=== PATIENT | female | born 1985 | race African-American/Black ===

== ENCOUNTER 2018-07-28 13:01 | Emergency (ER) | payer MEDICAID, OTHER ==
[~2018-07-28] VITALS: Ht 157.5 cm; Wt 40.4 kg
--- NOTE | 2018-07-28 13:25 | ED GI ---
General Stated Complaint: STOMACH WOUND Source of Information: Patient Exam Limitations: No Limitations History of Present Illness Date Seen by Provider: Jul 28, 2018 Time Seen by Provider: 13:15 Initial Comments Patient presents to ER by private conveyance with chief complaint of increased drainage from her fistula. Year ago she had to have a colectomy and ileostomy placed secondary to Crohn's. She still on therapy under the care of a GI specialist at . One month ago she developed a small fistula to the left lateral portion of her ileostomy with a small amount of stool. She went to see Dr. ybarra who referred her to go back to her GI specialist who set her up with an appointment with a surgeon at in the middle of August. She says the last couple days the drainage/stool has become more prevalent and she is using an ABD pad a couple times a day to keep it clean. She does have some modest pain but it's at baseline about a 45 out of 10 and she usually takes care of with just Tylenol. She does not want anything for the pain right now. No nausea vomiting or decreased stool output in the ileostomy bag. She has some irritated skin she says but has not began to break down she's not having any fevers chills , increased abdominal pain. She's not noted any blood from the fistula or ileostomy. She's not sure what to do with the more prominent drainage from the fistula. She is on treatment for her Crohn's but she's not sure the name of the drugs are. She used to be on Remicade but it had some adverse effects. Patient states that her heart rate always runs high around 110. Allergies and Home Medications Allergies Coded Allergies: ciprofloxacin (Verified Allergy, Unknown, 07/28/18) Patient Home Medication List Home Medication List Reviewed: Yes Review of Systems Review of Systems Constitutional: No chills, No fever, No malaise EENTM: No Blurred Vision, No Double Vision Respiratory: Denies Cough, Denies Shortness of Air Cardiovascular: Denies Chest Pain, Denies Lightheadedness Gastrointestinal: See HPI, Abdominal Pain (chronic); Denies Blood Streaked Stools, Denies Constipated, Denies Diarrhea Genitourinary: Denies Burning, Denies Discharge Musculoskeletal: No back pain, No joint pain Skin: No pruritus, No rash Psychiatric/Neurological: Denies Headache, Denies Numbness Past Wxkbvxr-Ziveum-Pwsksh Hx Patient Social History Alcohol Use: Denies Use Recreational Drug Use: No Smoking Status: Never a Smoker Recent Foreign Travel: No Contact w/Someone Who Travel: No Physical Exam Vital Signs Vital Signs - First Documented 07/28/18 13:05 Temp 97.4 Pulse 126 Resp 18 B/P (MAP) 117/78 (91) Pulse Ox 100 Capillary Refill : Height/Weight/BMI Height: '" Weight: lbs. oz. kg; BMI Method: General Appearance: WD/WN, no apparent distress, other (chronically ill) HEENT: PERRL/EOMI, pharynx normal Respiratory: lungs clear, normal breath sounds, no respiratory distress, no accessory muscle use Cardiovascular: normal peripheral pulses, regular rate, rhythm Gastrointestinal: normal bowel sounds, soft, tenderness (mild tenderness around the site of the fistula.) Neurologic/Psychiatric: alert, oriented x 3 Skin: other (there is a 1-2 cm open fistula with intact skin edges just lateral to the site of the ileostomy with a piece of gauze taped over. The skin is not macerated erythematous. There is a small less than 5 cc of stool content similar to within the ileostomy present.) Progress/Results/Core Measures Results/Orders Lab Results Laboratory Tests Test 07/28/18 13:05 Range/Units White Blood Count 5.5 4.3-11.0 10^3/uL Red Blood Count 3.38 L 4.35-5.85 10^6/uL Hemoglobin 10.0 L 11.5-16.0 G/DL Hematocrit 32 L 35-52 % Mean Corpuscular Volume 95 80-99 FL Mean Corpuscular Hemoglobin 30 25-34 PG Mean Corpuscular Hemoglobin Concent 31 L 32-36 G/DL Red Cell Distribution Width 16.3 H 10.0-14.5 % Platelet Count 325 130-400 10^3/uL Mean Platelet Volume 8.0 7.4-10.4 FL Neutrophils (%) (Auto) 71 42-75 % Lymphocytes (%) (Auto) 17 12-44 % Monocytes (%) (Auto) 11 0-12 % Eosinophils (%) (Auto) 1 0-10 % Basophils (%) (Auto) 0 0-10 % Neutrophils # (Auto) 3.9 1.8-7.8 X 10^3 Lymphocytes # (Auto) 0.9 L 1.0-4.0 X 10^3 Monocytes # (Auto) 0.6 0.0-1.0 X 10^3 Eosinophils # (Auto) 0.1 0.0-0.3 10^3/uL Basophils # (Auto) 0.0 0.0-0.1 10^3/uL Sodium Level 140 135-145 MMOL/L Potassium Level 4.2 3.6-5.0 MMOL/L Chloride Level 106 98-107 MMOL/L Carbon Dioxide Level 22 21-32 MMOL/L Anion Gap 12 5-14 MMOL/L Blood Urea Nitrogen 13 7-18 MG/DL Creatinine 0.97 0.60-1.30 MG/DL Estimat Glomerular Filtration Rate > 60 BUN/Creatinine Ratio 13 Glucose Level 85 70-105 MG/DL Calcium Level 9.7 8.5-10.1 MG/DL Corrected Calcium 10.1 8.5-10.1 MG/DL Magnesium Level 1.5 L 1.8-2.4 MG/DL Total Bilirubin 0.3 0.1-1.0 MG/DL Aspartate Amino Transf (AST/SGOT) 12 5-34 U/L Alanine Aminotransferase (ALT/SGPT) 7 0-55 U/L Alkaline Phosphatase 68 40-136 U/L Total Protein 7.2 6.4-8.2 GM/DL Albumin 3.5 3.2-4.5 GM/DL My Orders Orders - ESTEFANIA WHELAN Chayo Cbc With Automated Diff (07/28/18 13:18) Comprehensive Metabolic Panel (07/28/18 13:18) Magnesium (07/28/18 13:18) Vital Signs/I&O 07/28/18 13:05 Temp 97.4 Pulse 126 Resp 18 B/P (MAP) 117/78 (91) Pulse Ox 100 Progress Progress Note : Time: 13:26 Progress Note Plan to check some basic labs. Her abdominal exam is unremarkable. The fistula across external os does not look like it is breaking down. Since it seems to be increasing how much is draining we could suggest putting another ileostomy bag over the site rather than just using the gauze. If the basic labs don't demonstrate evidence of infection or inflammation and will ask her general surgeon for suggestions and see if we can set her up at to see the surgeon a little sooner. If the labs are concerning then we will obtain CT imaging to see if there is tracks going anywhere else and consider antibiotic coverage and cultures. This would accelerate her workup inpatient. Consults : Consulting Physician: SIMONE SANCHEZ MD Consults Notes Discussed the case with Dr. Sanchez and he agrees with plan. He suggested we put a another colostomy bag over the ileostomy for skin protection. He also recommends Cipro and Flagyl and follow up with a specialist surgeon which is already set up. He would suggest about 2 weeks of antibiotics. Low residual diet. Departure Impression Primary Impression: Enterocutaneous fistula Additional Impressions: Crohn's colitis Qualified Codes: K50.113 - Crohn's disease of large intestine with fistula Ileostomy present Hypomagnesemia Disposition: HOME, SELF-CARE Condition: Stable Departure-Patient Inst. Decision time for Depature: 13:56 Referrals: ASTON YBARRA MD (PCP) Primary Care Physician Patient Instructions: Enterocutaneous Fistula (DC), Low Fiber Diet Add. Discharge Instructions: Keep the skin clean around your fistula the same as you would for your ileostomy. Empty the fistula bag and change it on the same schedule that you change your ileostomy or as needed. Return to the ER if you begin to have significant wound breakdown, abdominal pain that does not respond to Tylenol or ibuprofen, nausea vomiting or fever. Eat a low fiber diet. See the reference handout. lab support service tech the antibiotics and start taking Augmentin and Flagyl twice a day with food. For the next 4 days take a magnesium oxide tablet twice a day. Drink plenty of fluids. Keep your follow-up appointment with the surgeon in August. Scripts Metronidazole (Flagyl) 500 Mg Tablet 500 MG PO BID for 14 Days, #28 TAB 0 Refills Prov: ESTEFANIA WHELAN 07/28/18 Amoxicillin/Potassium Clav (Augmentin 875-125 Tablet) 1 Each Tablet 1 EACH PO BID for 14 Days, #28 TAB 0 Refills Prov: ESTEFANIA WHELAN 07/28/18 ESTEFANIA WHELAN Jul 28, 2018 13:24
[2018-07-28] MEDS ORDERED: ERGO50006 (13:29)
[2018-07-28] MEDS ORDERED: ZINC220C9 (13:29)
[2018-07-28] MEDS ORDERED: AZAT50TA (13:29)
[2018-07-28] MEDS ORDERED: MIDO5TAB (13:29)
[2018-07-28] MEDS ORDERED: DIPH1TAB25 (13:29)
[2018-07-28] MEDS ORDERED: ATOR10TA66 (13:29)
[2018-07-28 13:35] LABS: BASOPHILS % (AUTO) 0 % (0-10); EOSINOPHILS # (AUTO) 0.1 10^3/uL (0.0-0.3); EOSINOPHILS % (AUTO) 1 % (0-10); HEMATOCRIT 32 % (35-52); LYMPHOCYTES # (AUTO) 0.9 X 10^3 (1.0-4.0); LYMPHOCYTES % (AUTO) 17 % (12-44); MEAN CORPUSCULAR HEMOGLOBIN 30 PG (25-34); MEAN CORPUSCULAR HGB CONC 31 G/DL (32-36); MEAN CORPUSCULAR VOLUME 95 FL (80-99); MONOCYTES # (AUTO) 0.6 X 10^3 (0.0-1.0); MONOCYTES % (AUTO) 11 % (0-12); NEUTROPHILS # (AUTO) 3.9 X 10^3 (1.8-7.8); NEUTROPHILS % (AUTO) 71 % (42-75); PLATELET COUNT 325 10^3/uL (130-400); RED CELL DISTRIBUTION WIDTH 16.3 % (10.0-14.5); WHITE BLOOD COUNT 5.5 10^3/uL (4.3-11.0)
[2018-07-28 13:51] LABS: ALANINE AMINOTRANSFERASE 7 U/L (0-55); ALBUMIN 3.5 GM/DL (3.2-4.5); ALKALINE PHOSPHATASE 68 U/L (40-136); BILIRUBIN,TOTAL 0.3 MG/DL (0.1-1.0); BUN/CREATININE RATIO 13; CALCIUM 9.7 MG/DL (8.5-10.1); CARBON DIOXIDE 22 MMOL/L (21-32); CHLORIDE 106 MMOL/L (98-107); CREATININE SERUM 0.97 MG/DL (0.60-1.30); GFR ESTIMATED > 60; GLUCOSE 85 MG/DL (70-105); MAGNESIUM 1.5 MG/DL (1.8-2.4); POTASSIUM 4.2 MMOL/L (3.6-5.0); SODIUM 140 MMOL/L (135-145); TOTAL PROTEIN 7.2 GM/DL (6.4-8.2)
[2018-07-28 14:03] VITALS: BP 117/78
[2018-07-28] MEDS ORDERED: AMOX-358 PO (14:03)
[2018-07-28] MEDS ORDERED: METR500T PO (14:03)
--- NOTE | 2018-07-28 14:03 | NUR ---
2ND SMALLER COLOSTOMY BAG IN PLACE ORDERED
== END 2018-07-28 14:06 | disposition home or self-care (01) ==
LOC: ER 13:03
DX: K63.2 Fistula of intestine (principal); K50.113 Crohn's disease of large intestine with fistula; E83.42 Hypomagnesemia; Z88.1 Allergy status to other antibiotic agents; Z93.2 Ileostomy status; Z90.49 Acquired absence of other specified parts of digestive tract
CPT/HCPCS: 36415; 80053; 83735; 85025; 99282

== ENCOUNTER 2019-01-26 14:29 | Emergency (ER) | payer MEDICAID ==
[~2019-01-26] VITALS: Ht 157 cm; Wt 52.0 kg
[~2019-01-26 14:29] MED LIST: AMOX-358 PO; ATOR10TA66; AZAT50TA; DIPH1TAB25; ERGO50006; METR500T PO; MIDO5TAB; ZINC220C9
--- NOTE | 2019-01-26 14:50 | NUR ---
PT UNSURE OF MED LIST
[2019-01-26] MEDS ORDERED: NS IV 1000 ML 1,000 ML IV ONE (15:17)
--- NOTE | 2019-01-26 15:31 | ED Abdominal Pain ---
General Chief Complaint: Skin/Wound Problems Stated Complaint: HERNIA Nursing Triage Note: PT CO OF ILEOSTOMY AREA W HERNIA W FISTULA, SORE STATES BAG NOT STICKING WELL. PT HAS TWO STOMA SITES W STOOL COMING FROM THEM. PT STATES WONDERING IF IS INFECTED Sepsis Screen: No Definite Risk Source of Information: Patient Exam Limitations: No Limitations (SANTANA STEPHEN STUDENT) History of Present Illness Date Seen by Provider: Jan 26, 2019 Time Seen by Provider: 15:10 Initial Comments The patient is a wd/wn thin 34 y/o female who is here with a chief complaint of abdominal pain. She states that she typically experiences pain associated with Chron's disease and ileiostomy but the pain has been increasing near the ostomy and she is concerned about infection. She reports that the area also appears to be swollen and mildly erythematous. She states that it is very sore to touch around the iliostomy and fistula. She denies any recent fevers or illness. She also denies nausea, vomiting, or shortness of breath. Her abdomen is otherwise nontender. Timing/Duration: Getting Worse Severity/Quality: Moderate Location: LLQ Radiation: No Radiation Activities at Onset: None Modifying Factors: Worsens With Movement, Worsens With Palpation (SANTANA STEPHEN STUDENT) Initial Comments Here with report of drainage around her ileostomy site and the area of fistula drainage. She is tender between the sites. Notes that stool is leaking around her bag and down and she is worried that there is something worse going on. Denies fever or chills. Denies nausea, vomiting or weakness. Does have loose/watery stool which is typical. She has stool collection in both bags. Timing/Duration: Getting Worse Severity/Quality: Moderate Location: LLQ Radiation: No Radiation Activities at Onset: None Associated Symptoms: No Back Pain, No Chest Pain, No Fever/Chills, No Nausea/Vomiting, No Weakness; Other (some skin changes around the ostomy and fistula) (ALON MOY MD) Allergies and Home Medications Allergies Coded Allergies: ciprofloxacin (Verified Allergy, Unknown, 07/28/18) Home Medications Amoxicillin/Potassium Clav 1 Each Tablet, 1 EACH PO BID Prescribed by: ESTEFANIA WHELAN on 07/28/18 1403 Metronidazole 500 Mg Tablet, 500 MG PO BID Prescribed by: ESTEFANIA WHELAN on 07/28/18 1403 Patient Home Medication List Home Medication List Reviewed: Yes (ALON MOY MD) Review of Systems Review of Systems Constitutional: No chills, No fever Respiratory: Denies Cough, Denies Shortness of Air Cardiovascular: Denies Chest Pain, Denies Palpitations Gastrointestinal: Abdominal Pain; Denies Nausea, Denies Vomiting (SANTANA STEPHEN STUDENT) Genitourinary: No Symptoms Reported Musculoskeletal: no symptoms reported Skin: see HPI, change in color, lesions (ALON MOY MD) All Other Systems Reviewed Negative Unless Noted: Yes (ALON MOY MD) Past Pkmnqmf-Hvabzz-Dxwexp Hx Past Med/Social Hx: Reviewed Nursing Past Med/Soc Hx (ALON MOY MD) Patient Social History Alcohol Use: Denies Use Recreational Drug Use: No Smoking Status: Never a Smoker Recent Foreign Travel: No Contact w/Someone Who Travel: No Recent Infectious Disease Expo: No Recent Hopitalizations: No Physical Abuse: No Sexual Abuse: No (SANTANA STEPHEN) Past Medical History Surgeries: Yes Abdominal Respiratory: No Cardiac: No Neurological: No Genitourinary: No Gastrointestinal: Yes (ILEOSTOMY) Crohns Disease Musculoskeletal: No Endocrine: No HEENT: No Cancer: No Psychosocial: No Integumentary: No (SANTANA STEPHEN STUDENT) Family Medical History Reviewed Nursing Family Hx (ALON MOY MD) No Pertinent Family Hx (ALON MOY MD) Physical Exam Vital Signs Vital Signs - First Documented 01/26/19 14:40 Temp 36.9 Pulse 121 Resp 18 B/P (MAP) 100/65 (77) Pulse Ox 98 (LAON MOY MD) Vital Signs Capillary Refill : Less Than 3 Seconds (SANTANA STEPHEN STUDENT) Height/Weight/BMI Height: 5'2.00" Weight: 89lbs. oz. 40.688657qc; 21.00 BMI Method:Stated General Appearance: WD/WN, no apparent distress HEENT: PERRL/EOMI, pharynx normal Respiratory: chest non-tender, lungs clear, normal breath sounds Cardiovascular: regular rate, rhythm, no murmur Gastrointestinal: normal bowel sounds, soft, tenderness Extremities: normal inspection, no pedal edema Back: normal inspection, no CVA tenderness, no vertebral tenderness Skin: normal color, warm/dry (SANTANA STEPHEN MED STUDENT) General Appearance: WD/WN, no apparent distress HEENT: PERRL/EOMI, pharynx normal Neck: full range of motion, supple Respiratory: lungs clear, normal breath sounds Cardiovascular: regular rate, rhythm, no murmur Gastrointestinal: soft, tenderness (left lower quadrant below ostomy and fistula site as well as in between.) Extremities: normal range of motion, non-tender, normal inspection Back: normal inspection, no CVA tenderness, no vertebral tenderness Neurologic/Psychiatric: alert, oriented x 3 Skin: warm/dry, other (some erythema near ostomy site especially below and between ostomy and fistula site.) (ALON MOY MD) Progress/Results/Core Measures Results/Orders Lab Results Laboratory Tests Test 01/26/19 15:35 01/26/19 17:38 Range/Units White Blood Count 5.6 4.3-11.0 10^3/uL Red Blood Count 3.86 L 4.35-5.85 10^6/uL Hemoglobin 11.5 11.5-16.0 G/DL Hematocrit 36 35-52 % Mean Corpuscular Volume 92 80-99 FL Mean Corpuscular Hemoglobin 30 25-34 PG Mean Corpuscular Hemoglobin Concent 32 32-36 G/DL Red Cell Distribution Width 15.5 H 10.0-14.5 % Platelet Count 306 130-400 10^3/uL Mean Platelet Volume 8.2 7.4-10.4 FL Neutrophils (%) (Auto) 67 42-75 % Lymphocytes (%) (Auto) 22 12-44 % Monocytes (%) (Auto) 9 0-12 % Eosinophils (%) (Auto) 2 0-10 % Basophils (%) (Auto) 1 0-10 % Neutrophils # (Auto) 3.7 1.8-7.8 X 10^3 Lymphocytes # (Auto) 1.2 1.0-4.0 X 10^3 Monocytes # (Auto) 0.5 0.0-1.0 X 10^3 Eosinophils # (Auto) 0.1 0.0-0.3 10^3/uL Basophils # (Auto) 0.0 0.0-0.1 10^3/uL Sodium Level 143 135-145 MMOL/L Potassium Level 3.8 3.6-5.0 MMOL/L Chloride Level 109 H 98-107 MMOL/L Carbon Dioxide Level 23 21-32 MMOL/L Anion Gap 11 5-14 MMOL/L Blood Urea Nitrogen 12 7-18 MG/DL Creatinine 0.92 0.60-1.30 MG/DL Estimat Glomerular Filtration Rate > 60 BUN/Creatinine Ratio 13 Glucose Level 92 70-105 MG/DL Calcium Level 9.1 8.5-10.1 MG/DL Corrected Calcium 9.3 8.5-10.1 MG/DL Total Bilirubin 0.3 0.1-1.0 MG/DL Aspartate Amino Transf (AST/SGOT) 13 5-34 U/L Alanine Aminotransferase (ALT/SGPT) 10 0-55 U/L Alkaline Phosphatase 99 40-136 U/L C-Reactive Protein High Sensitivity 2.28 H 0.00-0.50 MG/DL Total Protein 7.5 6.4-8.2 GM/DL Albumin 3.7 3.2-4.5 GM/DL Urine Color YELLOW Urine Clarity CLEAR Urine pH 5 5-9 Urine Specific [place] 1.010 L 1.016-1.022 Urine Protein 2+ H NEGATIVE Urine Glucose (UA) NEGATIVE NEGATIVE Urine Ketones NEGATIVE NEGATIVE Urine Nitrite NEGATIVE NEGATIVE Urine Bilirubin NEGATIVE NEGATIVE Urine Urobilinogen NORMAL NORMAL MG/DL Urine Leukocyte Esterase 1+ H NEGATIVE Urine RBC (Auto) NEGATIVE NEGATIVE Urine RBC NONE /HPF Urine WBC NONE /HPF Urine Squamous Epithelial Cells >50 H /HPF Urine Crystals NONE /LPF Urine Bacteria FEW H /HPF Urine Casts NONE /LPF Urine Mucus NEGATIVE /LPF Urine Culture Indicated NO (ALON MOY MD) My Orders Orders - ALON MOY MD Cbc With Automated Diff (01/26/19 15:17) Comprehensive Metabolic Panel (01/26/19 15:17) Hs C Reactive Protein (01/26/19 15:17) Ua Culture If Indicated (01/26/19 15:17) Ed Iv/Invasive Line Start (01/26/19 15:17) Ns Iv 1000 Ml (Sodium Chloride 0.9%) (01/26/19 15:17) Ct Abdomen/Pelvis W (01/26/19 15:17) Iohexol Injection (Omnipaque 350 Mg/Ml 1 (01/26/19 16:00) Received Contrast (Hold Metformin- Contr (01/26/19 16:00) Ns (Ivpb) (Sodium Chloride 0.9% Ivpb Bag (01/26/19 16:00) (ALON MOY MD) Medications Given in ED Current Medications Medications Dose Ordered Sig/Derek Route Start Time Stop Time Status Last Admin Dose Admin Iohexol 100 ml ONCE ONCE IV 01/26/19 16:00 01/26/19 16:01 DC 01/26/19 17:22 66 ML Sodium Chloride 100 ml ONCE ONCE IV 01/26/19 16:00 01/26/19 16:01 DC 01/26/19 17:22 80 ML Sodium Chloride 1,000 ml @ 0 mls/hr Q0M ONCE IV 01/26/19 15:17 01/26/19 15:25 DC 01/26/19 15:40 1,000 MLS/HR (ALON MOY MD) Vital Signs/I&O 01/26/19 14:40 Temp 36.9 Pulse 121 Resp 18 B/P (MAP) 100/65 (77) Pulse Ox 98 (ALON MOY MD) Blood Pressure Mean: 77 Progress Progress Note : Time: 15:30 Progress Note The patient is resting comfortably in the exam room. She will be evaluate with CT of abdomen and pelvis with oral and IV contrast. Initial lab analysis will consist of CBC, CMP, CRP, and UA. She will be administered 1L of normal saline (SANTANA STEPHEN STUDENT) Progress Note : Progress Note I seen and evaluated the patient and agree with above except as indicated. Have directed the plan of care. Given skin changes and pain near ileostomy and fistula site and concerns for abscess, we will go ahead and get CT abdomen and pelvis with oral and IV contrast. Normal saline 1 L bolus. Monitor patient. 1845: CT complete. Results as below. There is concerns about partial small bowel obstruction. Surgeons of about area lateral to ostomy site which is the area of the fistula. No obvious abscess. Patient continues to have output at both the ileostomy and fistula site are currently draining the oral contrast. Patient is not in significant pain. She would like to try to manage this at home with clear liquid diet and rest with the understanding that she may fail and will need to be admitted. This was discussed at length. Patient is in agreement. Discharge home with return precautions. Patient verbalized understanding of instructions and agreement with plan. (ALON MOY MD) Diagnostic Imaging Diagonstic Imaging: CT Plain Films/CT/US/NM/MRI: abdomen, pelvis Comments NAME: SHARON HARRIS [facility] REC#: [id number] PT STATUS: REG ER : 1985 PHYSICIAN: ALON MOY MD ADMIT DATE: 01/26/19/ER Signed Date of Exam: 01/26/19 CT ABDOMEN/PELVIS W PROCEDURE: CT abdomen and pelvis with contrast. TECHNIQUE: Multiple contiguous axial images were obtained through the abdomen and pelvis after administration of intravenous contrast. Auto Exposure Controls were utilized during the CT exam to meet ALARA standards for radiation dose reduction. INDICATION: Partial colon resection. EXAMINATION: CT abdomen and pelvis with contrast from 01/26/2019. COMPARISONS: None. FINDINGS: The colon as visualized appears decompressed with no surrounding inflammation along the right colon or descending colon. Within the region of the rectosigmoid, there is poor evaluation due to the adjacent soft tissue prominence of the uterus. There may be a small amount of free fluid in the region which may be physiologic with small focus of inflammation of the distal colon not excluded. There is no adjacent free air. No abscess is seen. The small bowel loops are markedly dilated. Linear densities in the right lower quadrant likely postoperative changes. The terminal ileum is somewhat difficult to visualize. The visualized distal small bowel loops appear decompressed. Transition point is likely within the mid to slightly right aspect of the lower abdomen into the pelvis but not definitely seen. There is no free air. The liver demonstrates diffuse fatty infiltration. Gallbladder appears to be contracted. Pancreas unremarkable. Spleen unremarkable. Adrenal glands normal. Kidneys unremarkable. Scattered slightly prominent lymph nodes throughout the retroperitoneum and mid abdomen are noted and likely on a reactive inflammatory type of nature. The osseous structures demonstrate no acute abnormalities. There are multiple calcifications within the pelvis likely all within associated fibroids. The uterus is diffusely enlarged and these findings are better characterized sonographically on a nonemergent basis. Lung bases demonstrate linear atelectasis or scarring on the left. No acute process. IMPRESSION: 1. Markedly dilated small bowel loops suspect for a partial small bowel obstruction as above. Otherwise, ileus possible. Followup recommended. 2. Diffuse enlarged lymph nodes in the mid abdomen likely reactive. These could be followed to assure resolution. 3. Markedly enlarged heterogeneous uterus with multiple large calcifications in the region. These findings likely due to fibroids. Followup with nonemergent sonography recommended. 4. Other findings as above. This includes an osteotomy site in the left lower quadrant not mentioned above. In this region, there is a small amount of fluid and tiny foci of air. It is difficult to ascertain if this is contained within the bowel loop extending into the osteotomy site or if there is a small developing abscess. Nonetheless, no measurable amount or drainable amounts of fluid noted. Dictated by: Dictated on workstation # [id number] Dict: 01/26/191725 Trans: 01/26/191753 Interpreted by: MICHAEL PARIS MD Electronically signed by: MICHAEL PARIS MD 01/26/191753 (ALON MOY MD) Departure Impression Primary Impression: Fistula of intestine to abdominal wall Additional Impression: Partial small bowel obstruction Disposition: 01 HOME, SELF-CARE Condition: Stable Departure-Patient Inst. Decision time for Depature: 19:06 (ALON MOY MD) Referrals: ASTON YBARRA MD (PCP) Primary Care Physician Patient Instructions: Enteric (Including Enterocutaneous) Fistula, Small Bowel Obstruction (DC) Add. Discharge Instructions: All discharge instructions reviewed with patient and/or family. Voiced understanding. Use wound care instructions and was given to you by the nurse regarding care of ostomy bags and use of barrier paced. Clear liquid or very light diet for the next 24-36 hours and then advance as tolerated. It is very important that you follow-up with your gastroenterology specialist. Call his office for appointment. Return for worse pain, fever, vomiting, decreased output of the ostomies or other concerns as needed. Continue home medications as previously prescribed. SANTANA STEPHEN MED STUDENT Jan 26, 2019 15:31 ALON MOY MD Jan 26, 2019 19:05
--- NOTE | 2019-01-26 15:44 | NUR ---
PT DRINKING CONTRAST
[2019-01-26 15:45] LABS: BASOPHILS % (AUTO) 1 % (0-10); EOSINOPHILS # (AUTO) 0.1 10^3/uL (0.0-0.3); EOSINOPHILS % (AUTO) 2 % (0-10); HEMATOCRIT 36 % (35-52); HEMOGLOBIN 11.5 G/DL (11.5-16.0); LYMPHOCYTES # (AUTO) 1.2 X 10^3 (1.0-4.0); LYMPHOCYTES % (AUTO) 22 % (12-44); MEAN CORPUSCULAR HEMOGLOBIN 30 PG (25-34); MEAN CORPUSCULAR HGB CONC 32 G/DL (32-36); MEAN CORPUSCULAR VOLUME 92 FL (80-99); MEAN PLATELET VOLUME 8.2 FL (7.4-10.4); MONOCYTES # (AUTO) 0.5 X 10^3 (0.0-1.0); MONOCYTES % (AUTO) 9 % (0-12); NEUTROPHILS # (AUTO) 3.7 X 10^3 (1.8-7.8); NEUTROPHILS % (AUTO) 67 % (42-75); PLATELET COUNT 306 10^3/uL (130-400); RED CELL DISTRIBUTION WIDTH 15.5 % (10.0-14.5); WHITE BLOOD COUNT 5.6 10^3/uL (4.3-11.0)
[2019-01-26] MEDS ORDERED: HOLD METFORMIN - RECEIVED CONTRAST 20 ML VIAL IV SCH (16:00)
[2019-01-26] MEDS ORDERED: IOHEXOL 350 MG/ML 100 ML (OMNIPAQUE 350) VIAL IV ONE (16:00)
[2019-01-26] MEDS ORDERED: NS 100 ML (IVPB) BAG IV ONE (16:00)
[2019-01-26 16:12] LABS: ALANINE AMINOTRANSFERASE 10 U/L (0-55); ALBUMIN 3.7 GM/DL (3.2-4.5); ALKALINE PHOSPHATASE 99 U/L (40-136); BILIRUBIN,TOTAL 0.3 MG/DL (0.1-1.0); BUN/CREATININE RATIO 13; CALCIUM 9.1 MG/DL (8.5-10.1); CARBON DIOXIDE 23 MMOL/L (21-32); CHLORIDE 109 MMOL/L (98-107); CREATININE SERUM 0.92 MG/DL (0.60-1.30); GFR ESTIMATED > 60; GLUCOSE 92 MG/DL (70-105); POTASSIUM 3.8 MMOL/L (3.6-5.0); SODIUM 143 MMOL/L (135-145); TOTAL PROTEIN 7.5 GM/DL (6.4-8.2)
[2019-01-26 17:43] LABS: BILIRUBIN,URINE NEGATIVE (NEGATIVE); CLARITY,URINE CLEAR; COLOR,URINE YELLOW; GLUCOSE, URINE (UA) NEGATIVE (NEGATIVE); KETONES,URINE NEGATIVE (NEGATIVE); LEUKOCYTE ESTERASE ,URINE 1+ (NEGATIVE); NITRITE,URINE NEGATIVE (NEGATIVE); PH,URINE 5 (5-9); PROTEIN,URINE 2+ (NEGATIVE); UROBILINOGEN,URINE NORMAL (NORMAL)
--- NOTE | 2019-01-26 17:44 | Diagnostic Imaging Report ---
PROCEDURE: CT abdomen and pelvis with contrast. TECHNIQUE: Multiple contiguous axial images were obtained through the abdomen and pelvis after administration of intravenous contrast. Auto Exposure Controls were utilized during the CT exam to meet ALARA standards for radiation dose reduction. INDICATION: Partial colon resection. EXAMINATION: CT abdomen and pelvis with contrast from 01/26/2019. COMPARISONS: None. FINDINGS: The colon as visualized appears decompressed with no surrounding inflammation along the right colon or descending colon. Within the region of the rectosigmoid, there is poor evaluation due to the adjacent soft tissue prominence of the uterus. There may be a small amount of free fluid in the region which may be physiologic with small focus of inflammation of the distal colon not excluded. There is no adjacent free air. No abscess is seen. The small bowel loops are markedly dilated. Linear densities in the right lower quadrant likely postoperative changes. The terminal ileum is somewhat difficult to visualize. The visualized distal small bowel loops appear decompressed. Transition point is likely within the mid to slightly right aspect of the lower abdomen into the pelvis but not definitely seen. There is no free air. The liver demonstrates diffuse fatty infiltration. Gallbladder appears to be contracted. Pancreas unremarkable. Spleen unremarkable. Adrenal glands normal. Kidneys unremarkable. Scattered slightly prominent lymph nodes throughout the retroperitoneum and mid abdomen are noted and likely on a reactive inflammatory type of nature. The osseous structures demonstrate no acute abnormalities. There are multiple calcifications within the pelvis likely all within associated fibroids. The uterus is diffusely enlarged and these findings are better characterized sonographically on a nonemergent basis. Lung bases demonstrate linear atelectasis or scarring on the left. No acute process. IMPRESSION: 1. Markedly dilated small bowel loops suspect for a partial small bowel obstruction as above. Otherwise, ileus possible. Followup recommended. 2. Diffuse enlarged lymph nodes in the mid abdomen likely reactive. These could be followed to assure resolution. 3. Markedly enlarged heterogeneous uterus with multiple large calcifications in the region. These findings likely due to fibroids. Followup with nonemergent sonography recommended. 4. Other findings as above. This includes an osteotomy site in the left lower quadrant not mentioned above. In this region, there is a small amount of fluid and tiny foci of air. It is difficult to ascertain if this is contained within the bowel loop extending into the osteotomy site or if there is a small developing abscess. Nonetheless, no measurable amount or drainable amounts of fluid noted. Dictated by: Dictated on workstation # [id number]
[2019-01-26 17:49] LABS: BACTERIA,URINE FEW /HPF; SQUAMOUS EPITHELIAL CELL,UR >50 /HPF
--- NOTE | 2019-01-26 19:02 | NUR ---
REPORT TO [facility]
[2019-01-26 19:15] VITALS: BP 104/72
== END 2019-01-26 19:17 | disposition home or self-care (01) ==
LOC: EDUNIT# 14:29 → ER 14:30
DX: K63.2 Fistula of intestine (principal); K56.600 Partial intestinal obstruction, unspecified as to cause; Z88.1 Allergy status to other antibiotic agents; Z87.19 Personal history of other diseases of the digestive system; Z93.2 Ileostomy status
CPT/HCPCS: 36415; 74177; 80053; 81000; 85025; 86141